=== PATIENT | male | born 1995 | race Caucasian/White ===

== ENCOUNTER → 2017-06-05 16:57 | Outpatient (CLI) | payer BC, SELFPAY ==
[2017-06-05 17:41] LABS: Hematocrit 42.9 % (40-54); Hemoglobin 14.4 g/dl (13.0-16.5); Mean Corp Hgb Conc 33.6 g/gl (32-36); Mean Corpuscular Volume 89.4 fL (80-94); Mean Platelet Vol. 10.7 fl (6.2-12.0); Platelet Count 172 K/mm3 (150-450); RBC Distribution Width CV 12.3 % (11.6-14.6); RBC Distribution Width SD 39.9 fl (35.1-43.9); White Blood Count 5.3 K/mm3 (4.4-11.0)
[2017-06-05 17:43] LABS: Scan Indicated on CBC? Y/N NO
[2017-06-05 18:06] LABS: Erythrocyte Sedimentation Rate 4 mm/hr (0-15)
[2017-06-05 18:32] LABS: ALB/GLOB Ratio 1.2 RATIO (0.9-2.4); AST(SGOT) 22 U/L (15-37); Alanine Aminotransfer ALT/SGPT 24 U/L (16-61); Albumin, Serum 4.1 g/dL (3.2-5.0); Alkaline Phosphatase 84 U/L (45-117); Anion Gap 6 (5-15); BUN 23 mg/dL (7-18); BUN/Creat Ratio 21.9 RATIO (10-20); Calcium,Total 8.7 mg/dL (8.5-10.1); Chloride 109 mmol/L (98-107); Creatinine, Serum 1.05 mg/dL (0.70-1.30); EST Glomerular Filtration Rate 96 mL/min (>60); Est Glom Filt Rate - Afr Amer 116 mL/min (>60); Globulin 3.3 g/dL (2.2-4.2); Glucose 89 mg/dL (74-106); Potassium 3.8 mmol/L (3.5-5.1); Protein, Total 7.4 g/dL (6.4-8.2); Sodium Level 141 mmol/L (136-145); T4 Free Direct 0.64 ng/dL (0.76-1.46); Thyroid Stim Hormone (TSH) 2.18 uIU/mL (0.358-3.74)
[2017-06-06 08:48] LABS: Vitamin B12 779 pg/mL (211-911); Vitamin D,25 Hydroxy 16.4 ng/mL (29.95-100.01)
[2017-06-09 12:14] LABS: Thyroid Peroxidase AB 127 IU/mL (0-26)
== END ==
PROVIDERS: Family Provider Family Medicine; PCP Family Medicine; Visit Provider Family Medicine
DX: R53.83 Other fatigue (principal); E04.9 Nontoxic goiter, unspecified
CPT/HCPCS: 36415; 80053; 82306; 82607; 84403; 84439; 84443; 84481; 85027; 85652; 86376

== ENCOUNTER 2017-10-19 23:12 | Emergency (ER) | payer BC, SELFPAY ==
[2017-10-19 23:13] VITALS: BP 171/85; PULSE 85; RESP 16; TEMP 36.7; O2SAT 100; BMI 24.4
--- NOTE | 2017-10-19 23:32 | EKG12_ITS ---
Test Reason : CP Blood Pressure : / mmHG Vent. Rate : 083 BPM Atrial Rate : 083 BPM P-R Int : 148 ms QRS Dur : 096 ms QT Int : 340 ms P-R-T Axes : 069 090 054 degrees QTc Int : 399 ms Normal sinus rhythm Rightward axis Borderline ECG Confirmed by LUIS A PATRICIA, JAVI ([id number]), state editor ROSE MARY MOFFETT ([id number] on 10/21/2017 1:34:13 PM Referred By: BARBRA Confirmed By:JAVI GUNN MD
[2017-10-19 23:41] LABS: Absolute Lymphocyte Count 3.11 X10^3/ul (0.83-4.51); Absolute Neutrophil Count 3.4 X10^3/uL (2.0-7.7); Basophil# 0.02 X10^3/uL; Basophil% 0.3 % (0-1); Eosinophil# 0.16 X10^3/uL; Eosinophils% 2.2 % (0-5); Hematocrit 45.7 % (40-54); Hemoglobin 15.6 g/dl (13.0-16.5); Lymphocyte # 3.11 X10^3/ul (4.0); Lymphocyte % 43.1 % (19-41); Mean Corp Hgb Conc 34.1 g/gl (32-36); Mean Corpuscular Hgb 30.3 pg (27.0-32.0); Mean Corpuscular Volume 88.7 fL (80-94); Mean Platelet Vol. 10.8 fl (6.2-12.0); Monocyte# 0.52 X10^3/uL; Monocyte% 7.2 % (0-10); Neutrophil # 3.41 X10^3/uL (2.7-7.7); Neutrophil % 47.2 % (47-70); Platelet Count 198 K/mm3 (150-450); RBC Distribution Width CV 12.5 % (11.6-14.6); Red Blood Count 5.15 M/mm3 (4.6-6.2); White Blood Count 7.2 K/mm3 (4.4-11.0)
--- NOTE | 2017-10-19 23:41 | ED.VIS.GEN ---
History of Present Illness Chief Complaint: Chest Pain Informant: Patient, Family Onset: Weeks - 1 Context: Sudden Onset Timing: Intermittent, Lasts - 2 seconds Quality: pressure or cramp Location: left chest. no radiation. Current Severity: gone Maximum Severity: Moderate Worsened by: nothing Relieved by: nothing Associated Symptoms: anxiety after it occurs. otherwise, none. 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 He has been having these episodes for the past week. They are brief and nonpleuritic. They occur randomly. Once he had one occur while he was doing bench press at the gym. He states he cannot tell if it is muscular or internal. Another time he woke up in the middle of the night with the discomfort, again very brief. He is home with his father right now, who states he has a bicuspid aortic valve and a thoracic aortic aneurysm, and so all of his first-degree relatives had screening echocardiograms including the patient. His was almost 1 year ago and was normal showing a trileaflet aortic valve. The patient has no associated symptoms with the discomfort. No shortness of breath, palpitations, lightheadedness or syncope, nausea/vomiting, diaphoresis, arm/jaw/back discomfort. He does not have a discomfort now but is here at home with his father and so came to have his symptoms evaluated. Recent Illness/Hospitalization: No Past Medical History - Allergies and Home Meds Allergies/Adverse Reactions: Allergies No Known Allergies Allergy (Verified 12/02/14 20:35) Primary Care Physician: Osbaldo Miranda MD [Primary Care Provider] - Past Medical History: None Surgical History: no surgical history Lives: Roommate Smoking Status: Never smoker Drugs: None Review of Systems All systems negative except as indicated General: Denies: Chills, Fever Eyes: Denies: Visual changes - bilaterally, Diplopia ENT: Denies: Rhinorrhea, Sore throat Cardiovascular: Reports: Chest pain Respiratory: Denies: Dyspnea, Cough Gastrointestinal: Denies: Abdominal pain, Nausea, Vomiting, Diarrhea, Melena, Hematochezia Musculoskeletal: Denies: Back pain, Swelling, Extremity Pain Skin: Denies: Rash, Wounds Neurological: Denies: Headache, Weakness, Parasthesia, Numbness Psych: Reports: Anxiety. Denies: Depression Endocrine: Denies: Polyuria, Polydipsia, Heat intolerance, Cold intolerance Hematologic: Denies: Easy bruising, Easy bleeding Allergy: Denies: Swelling of the mouth, Swelling of the tongue Physical Exam Vital Signs/Narrative: Vital Signs Temp Pulse Resp BP Pulse Ox 10/19/17 23:13 98.1 F 85 16 171/85 H 100 Inital Vital Signs reviewed: Yes General: Well nourished, Well developed Head: Normocephalic, Atraumatic Eyes: Perrl, EOMI ENT: Moist mucous membranes, No rhinorrhea Neck: Supple, Nontender, No JVD Cardiovascular: Regular rate, Regular rhythm, No murmurs, Normal S1, Normal S2. Negative for: Tachycardia Respiratory: No distress, CTA bilaterally, Chest nontender Abdomen: Soft, Nontender, Nondistended, Normal bowel sounds Back: Nontender, Normal Inspection Extremities: Nontender - including neg Mayito's bilat, No edema Skin: Normal color, No rash Neurological: Alert, Oriented x3, Cranial nerves II-XII grossly intact, Normal Strength, Normal Sensation Psychological: Normal affect - except a little anxious/tremulous; well-appearing Diagnostic/Tx/Re-eval Chest X-Ray - ED: 2 View, Read by ED Physician, No Acute Disease Laboratory Tests 10/19/17 10/19/17 23:20 23:20 WBC 7.2 RBC 5.15 Hgb 15.6 Hct 45.7 MCV 88.7 MCH 30.3 MCHC 34.1 RDW 12.5 RDW Differential 40.0 Plt Count 198 MPV 10.8 Immature Gran % (Auto) 0.000 Neut % (Auto) 47.2 Lymph % (Auto) 43.1 H [place] % (Auto) 7.2 Eos % (Auto) 2.2 Baso % (Auto) 0.3 Absolute Neuts (auto) 3.4 Absolute Lymphs (auto) 3.11 Total Counted Not Reportable Sodium 139 Potassium 3.5 Chloride 104 Carbon Dioxide 27.0 Anion Gap 8 BUN 19 H Creatinine 1.26 Estim Creat Clear Calc 102.65 Est GFR (MDRD) Af Amer 94 Est GFR (MDRD) Non-Af 77 BUN/Creatinine Ratio 15.1 Glucose 113 H Calcium 9.0 Troponin I < 0.015 - Rhythm Strip Rhythm Strip: Sinus Rhythm Rate: 85 Ectopy: None - EKG Initial EKG Interpretation: Sinus Rhythm, No Acute Injury Pattern, - - normal EKG. poss U-waves. - Medical Decision Making Patient's EKG is normal aside from what appeared to be some U waves. His potassium is okay as are the rest of his electrolytes and labs including negative troponin, with the exception of some mild prerenal azotemia. His chest x-ray is normal appearing on my interpretation, 2 view PA/lateral. He had no recurrence of discomfort while here in the ER. My suspicion is that this is noncardiac discomfort, his heart score is 1 for history of only. His father's issues do not confer risk for coronary disease or AL to him. He is very anxious, and keeps saying that his IV is uncomfortable, his heart rate was 110 [address] the IV; my suspicion is that his hypertension is due to this anxiety, and I recommend a recheck as an outpatient when he is feeling better. I recommend trying a twice daily H2 estrella or daily PPI, as acid related esophageal disorders are in the differential diagnosis for causing intermittent left-sided chest discomfort. He has a PERC score of 0, and his symptoms are less compatible with a PE. Therefore, I do not think further workup is indicated for that problem. He is reassured, advised that chest wall strain/discomfort is also in the differential diagnosis, and encouraged to follow-up. ED Disposition - Plan for ED Patient: Disposition: Home or Assisted Living Chief Complaint: Chest Pain Diagnosis: Intermittent left-sided chest pain Instructions: ED Chest Pain NonCardiac Referrals: Osbaldo Miranda MD [Primary Care Provider] - 1 Week if not improving
[2017-10-19 23:42] LABS: POSITIVE COUNT NO; POSITIVE DIFFERENTIAL NO; POSITIVE MORPHOLOGY NO
[2017-10-19 23:57] LABS: Anion Gap 8 (5-15); BUN 19 mg/dL (7-18); BUN/Creat Ratio 15.1 RATIO (10-20); Chloride 104 mmol/L (98-107); Creatinine, Serum 1.26 mg/dL (0.70-1.30); EST Glomerular Filtration Rate 77 mL/min (>60); Est Glom Filt Rate - Afr Amer 94 mL/min (>60); Estimated Creatinine Clearance 102.65 ml/min; Glucose 113 mg/dL (74-106); Potassium 3.5 mmol/L (3.5-5.1); Sodium Level 139 mmol/L (136-145)
[2017-10-20 00:16] VITALS: BP 152/92; PULSE 72; RESP 18; O2SAT 97
== END 2017-10-20 00:17 | disposition home or self-care (01) ==
PROVIDERS: Emergency Provider Emergency Medicine; Family Provider Family Medicine; PCP Family Medicine
DX: R07.89 Other chest pain (principal); Z82.49 Family history of ischemic heart disease and other diseases of the circulatory system
CPT/HCPCS: 71046; 80048; 84484; 85025; 93005; 99284

== ENCOUNTER → 2020-09-04 10:46 | Outpatient (CLI) | payer BC, SELFPAY ==
[2020-09-04 12:22] LABS: Absolute Neutrophil Count 2.7 X10^3/uL (2.0-7.7); Basophil# 0.02 X10^3/uL; Basophil% 0.4 % (0-1); Eosinophil# 0.24 X10^3/uL; Eosinophils% 4.7 % (0-5); Hematocrit 45.1 % (40-54); Hemoglobin 15.2 g/dL (13.0-16.5); Lymphocyte % 31.2 % (19-41); Mean Corp Hgb Conc 33.7 g/dL (32-36); Mean Corpuscular Hgb 29.7 pg (27.0-32.0); Mean Corpuscular Volume 88.3 fL (80-94); Mean Platelet Vol. 10.5 fl (6.2-12.0); Monocyte# 0.58 X10^3/uL; Monocyte% 11.3 % (0-10); NRBC Flagged by Analyzer 0 % (0-5); Neutrophil # 2.68 X10^3/uL (2.7-7.7); Neutrophil % 52.2 % (47-70); Platelet Count 203 K/mm3 (150-450); RBC Distribution Width SD 38.7 fl (35.1-43.9); Red Blood Count 5.11 M/mm3 (4.6-6.2); White Blood Count 5.1 K/mm3 (4.4-11.0)
[2020-09-04 13:00] LABS: Vitamin D,25 Hydroxy 33.6 ng/mL
[2020-09-04 13:12] LABS: Anion Gap 6 (5-15); BUN 15 mg/dL (7-18); BUN/Creat Ratio 16.6 RATIO (10-20); Calcium,Total 9.1 mg/dL (8.5-10.1); Chloride 103 mmol/L (98-107); EST Glomerular Filtration Rate 110 mL/min (>60); Est Glom Filt Rate - Afr Amer 133 mL/min (>60); Glucose 83 mg/dL (74-106); Potassium 3.7 mmol/L (3.5-5.1); Sodium Level 138 mmol/L (136-145); Thyroid Stim Hormone (TSH) 3.04 uIU/mL (0.358-3.74)
== END ==
PROVIDERS: PCP Family Medicine; Visit Provider Family Medicine
DX: F41.0 Panic disorder [episodic paroxysmal anxiety] (principal)
CPT/HCPCS: 36415; 80048; 82306; 84443; 85025